=== PATIENT | male | born 1975 | race Caucasian/White ===

== ENCOUNTER 2024-12-14 12:57 | Inpatient (IN) | payer OTHER, SELFPAY ==
[2024-12-14 13:52] LABS: PLATELET COUNT, AUTOMATED 402 10^3/uL (150-450)
[2024-12-14 14:26] LABS: ALT/SGPT 135 U/L (7.0-40); AST/SGOT 107 U/L (<34); CALCIUM LEVEL 9.1 MG/DL (8.5-10.1); CARBON DIOXIDE LEVEL 24 MMOL/L (20-31); CHLORIDE LEVEL 103 MMOL/L (98-107); CREATININE FOR GFR 0.82 MG/DL (0.70-1.30); GLOMERULAR FILTRATION RATE > 90.0 (>60); POTASSIUM SERUM 4.3 MMOL/L (3.5-5.1); SALICYLATE LEVEL < 3.0 MG/DL (<30); SODIUM LEVEL 139 MMOL/L (136-145)
[2024-12-14 15:32] LABS: AMPHETAMINES LEVEL URINE NEGATIVE (NEGATIVE); BARBITURATES URINE NEGATIVE (NEGATIVE); BENZODIAZEPINES URINE NEGATIVE (NEGATIVE); COCAINE METABOLITE URINE NEGATIVE (NEGATIVE); METHADONE URINE NEGATIVE (NEGATIVE); OPIATES URINE NEGATIVE (NEGATIVE)
[2024-12-14 15:33] LABS: CANNABINOIDS URINE NEGATIVE (NEGATIVE); PHENCYCLIDINE URINE NEGATIVE (NEGATIVE)
[2024-12-14 15:54] LABS: ETHYL ALCOHOL (ETHANOL) 0.318 % (0.000-0.010)
[2024-12-14] MEDS: NICOTINE 21 MG/24 HR 1 EA TRANSDERMAL TD ONE (16:01)
[2024-12-14] MEDS: THIAMINE 100 MG TAB PO SCH (21:00)
[2024-12-15] VITALS (7 sets, daily range): BP systolic 150–162; BP diastolic 88–98; TEMP 96.4–97.8; O2SAT 96–98
[2024-12-15] MEDS ORDERED: traZODone 50 MG TAB PO PRN
[2024-12-15] MEDS ORDERED: IBUPROFEN 400 MG TAB PO PRN
[2024-12-15] MEDS ORDERED: MOM 30 ML SUSPENSION UDC PO PRN
[2024-12-15] MEDS ORDERED: ACETAMINOPHEN 325 MG TAB PO PRN
[2024-12-15] MEDS ORDERED: FOLIC ACID 1 MG TAB PO SCH (09:00)
[2024-12-15] MEDS ORDERED: MULTIVITAMINS/MINERALS THERAP 1 TAB PO SCH (09:00)
[2024-12-15] MEDS: MAALOX 30 ML SUSP *UDC PO PRN (09:37)
[2024-12-15] MEDS: THIAMINE 100 MG TAB PO SCH (09:38)
[2024-12-15] MEDS: FOLIC ACID 1 MG TAB PO SCH (09:38)
[2024-12-15] MEDS: MULTIVITAMINS/MINERALS THERAP 1 TAB PO SCH (09:38)
[2024-12-15] MEDS: ACAMPROSATE CALCIUM 333 MG TABLET PO SCH (10:30)
[2024-12-15] MEDS: ESCITALOPRAM OXALATE 10 MG TABLET PO SCH (10:30)
[2024-12-15] MEDS: LORazepam 1 MG TAB PO ONE (10:33)
[2024-12-15] MEDS ORDERED: **hydrALAZINE HCL** 25 MG TAB PO PRN (12:55)
[2024-12-15] MEDS ORDERED: ROSU10TA61 PO (13:30)
[2024-12-15] MEDS ORDERED: HOME MED LIST COMPLETE! XX SCH (13:30)
[2024-12-15] MEDS ORDERED: BUSP15TA47 PO (13:30)
[2024-12-15] MEDS ORDERED: HYDR-643 PO (13:30)
[2024-12-15] MEDS ORDERED: OMEP40CA5 PO (13:30)
[2024-12-15] MEDS ORDERED: ASPI-226 PO (13:30)
[2024-12-15] MEDS ORDERED: LEXA1TAB2 PO (13:30)
[2024-12-15] MEDS ORDERED: LISI20TA33 PO (13:30)
[2024-12-15] MEDS: OXAZEPAM 15MG CAP PO SCH (14:29)
[2024-12-16 05:56] VITALS: BP_SYST 150; BP_DIAS 90; BP_DIAS 96; TEMP 98; O2SAT 98
[2024-12-16 08:24] VITALS: BP 178/96
[2024-12-16] MEDS: amLODIPine 5 MG TAB PO SCH (08:25)
[2024-12-16 09:11] VITALS: BP 168/104
[2024-12-16 09:13] LABS: ALT/SGPT 89 U/L (7.0-40); AST/SGOT 40 U/L (<34); CALCIUM LEVEL 9.4 MG/DL (8.5-10.1); CARBON DIOXIDE LEVEL 28 MMOL/L (20-31); CHLORIDE LEVEL 100 MMOL/L (98-107); CREATININE FOR GFR 0.86 MG/DL (0.70-1.30); GLOMERULAR FILTRATION RATE > 90.0 (>60); POTASSIUM SERUM 4.1 MMOL/L (3.5-5.1); SODIUM LEVEL 135 MMOL/L (136-145)
[2024-12-16 09:48] LABS: HEPATITIS C VIRUS ABY INDEX 0.02 INDEX (<0.8)
[2024-12-16 15:27] VITALS: BP 139/93; TEMP 97.1; O2SAT 97
[2024-12-16] MEDS: NICOTINE 14 MG/24 HR TRANSDERMAL TD PRN (20:40)
[2024-12-17 06:36] VITALS: BP 132/100; TEMP 97.1; O2SAT 100
[2024-12-17] MEDS: OXAZEPAM 15MG CAP PO SCH (08:12)
[2024-12-17 08:13] VITALS: BP 156/84
[2024-12-17] MEDS ORDERED: ACAM0.05 PO (08:35)
[2024-12-17] MEDS ORDERED: AMLO1TAB24 PO (08:35)
[2024-12-17] MEDS ORDERED: LEXA1TAB PO (08:35)
[2024-12-17] MEDS ORDERED: BUSP10TA PO (08:35)
[2024-12-19] MEDS ORDERED: OXAZEPAM 15MG CAP PO SCH (09:00)
== END 2024-12-17 11:20 | disposition home or self-care (01) | DRG 880 ==
LOC: M ED 12:57 → M ED INP 23:57 → M PSY 12-15 01:45
PROVIDERS: ADMIT Psychiatry & Neurology Neurology; ATTEND General Practice
DX: F41.9 Anxiety disorder, unspecified (principal); F33.1 Major depressive disorder, recurrent, moderate; R45.851 Suicidal ideations; F10.229 Alcohol dependence with intoxication, unspecified; F17.220 Nicotine dependence, chewing tobacco, uncomplicated; R74.01 Elevation of levels of liver transaminase levels; Z79.82 Long term (current) use of aspirin; Z79.899 Other long term (current) drug therapy